=== PATIENT | female | born 1995 | race Hispanic/Latino ===

== ENCOUNTER 2018-06-20 19:42 | Emergency (ER) | payer OTHER ==
[2018-06-20] MEDS ORDERED: ONDANSETRON HCL 4 MG/2 ML VIAL ONE (20:16)
[2018-06-20] MEDS ORDERED: SODIUM CHLORIDE 0.9% 1000ML 1,000 ML IV ONE (20:17)
[2018-06-20 20:51] LABS: BASOPHILS % (AUTO) 0.2 % (0.0-5.0); EOSINOPHILS % (AUTO) 0.2 % (0.0-8.0); HEMATOCRIT 37.5 % (36-48); LYMPHOCYTES % (AUTO) 10.1 % (21.0-51.0); MEAN CORPUSCULAR HEMOGLOBIN 27.5 pg (27.0-33.0); MEAN CORPUSCULAR HGB CONC 33.1 g/dL (32.0-36.0); MEAN CORPUSCULAR VOLUME 83.1 fL (79-99); MONOCYTES % (AUTO) 4.6 % (3.0-13.0); NEUTROPHILS % (AUTO) 84.9 % (40.0-77.0); NUCLEATED RED BLOOD CELLS 0.1 % (0.0-0.19); PLATELET COUNT (AUTO) 245 K/uL (130-400); RED BLOOD CELL COUNT(AUTO) 4.51 MIL/uL (4.00-5.50); RED CELL DISTRIBUTION WIDTH 14.2 % (11.0-15.5); WHITE BLOOD COUNT (AUTO) 6.8 K/uL (4.8-10.8)
[2018-06-20 21:03] LABS: CREATININE 0.7 mg/dL (0.5-1.5); POTASSIUM 3.5 mmol/L (3.5-5.1)
[2018-06-20 21:10] LABS: BILIRUBIN,TOTAL 1.1 mg/dL (0.2-1.0); TOTAL PROTEIN, SERUM 7.3 g/dL (6.0-8.3)
[2018-06-20 21:23] LABS: BILIRUBIN,URINE Negative (NEGATIVE); COLOR,URINE Dark Yellow (YELLOW); GLUCOSE, URINE (UA) Negative (NEGATIVE); KETONES,URINE Trace mg/dL (NEGATIVE); LEUKOCYTE ESTERASE ,URINE Small (NEGATIVE); NITRATE,URINE Negative (NEGATIVE); OCCULT BLOOD,URINE Negative (NEGATIVE); PROTEIN,URINE POS 1+ (NEGATIVE)
[2018-06-20 21:26] LABS: APPEARANCE,URINE SLIGHTLY CLOUDY (CLEAR)
[2018-06-20 21:29] LABS: RBC,URINE 0-1 /HPF (0-1)
[2018-06-20 21:30] LABS: BACTERIA,URINE Few /HPF (None Seen); MUCUS,URINE Moderate LPF (None Seen); SQUAMOUS EPITHELIAL CELL,UR Moderate /HPF (0-2)
== END 2018-06-20 22:05 | disposition home or self-care (01) ==
LOC: EDH 19:42
DX: K52.9 Noninfective gastroenteritis and colitis, unspecified (principal); N30.00 Acute cystitis without hematuria
CPT/HCPCS: 36415; 80053; 81001; 81025; 83605; 83690; 85025; 87040 ×2; 96361; 96374; 99283; J2405; J7030

== ENCOUNTER 2021-02-27 15:23 | Observation (INO) | payer MEDICAID ==
[~2021-02-27] VITALS: Ht 172.7 cm; Wt 172.4 kg
[2021-02-27 15:31] VITALS: BP 155/93
== END 2021-02-27 18:30 | disposition home or self-care (01) ==
LOC: EDH 15:23 → LDH 15:24
PROVIDERS: ADMIT Internal Medicine; ATTEND Internal Medicine
DX: O26.852 Spotting complicating pregnancy, second trimester (principal); Z3A.20 20 weeks gestation of pregnancy
CPT/HCPCS: 76805; G0378 ×4

== ENCOUNTER 2021-06-19 20:20 | Inpatient (IN) | payer MEDICAID ==
[~2021-06-19] VITALS: Ht 172.7 cm; Wt 181.0 kg
[2021-06-19 21:00] VITALS: BP 109/62
[2021-06-19 21:02] LABS: APPEARANCE,URINE Cloudy (CLEAR); BILIRUBIN,URINE Small (NEGATIVE); COLOR,URINE Dark Yellow (YELLOW); GLUCOSE, URINE (UA) Negative (NEGATIVE); KETONES,URINE Trace mg/dL (NEGATIVE); LEUKOCYTE ESTERASE ,URINE Moderate (NEGATIVE); NITRATE,URINE Negative (NEGATIVE); OCCULT BLOOD,URINE Moderate (NEGATIVE); PROTEIN,URINE POS 1+ mg/dL (NEGATIVE)
[2021-06-19] MEDS: LACTATED RINGERS 1000ML 1,000 ML IV PRN (21:20)
[2021-06-19 21:27] LABS: BACTERIA,URINE Few /HPF (None Seen); MUCUS,URINE Few LPF (None Seen); RBC,URINE None Seen /HPF (0-1); WBC,URINE 26-50 /HPF (0-1)
[2021-06-19 21:28] LABS: HEMATOCRIT 31.6 % (36-48); MEAN CORPUSCULAR HEMOGLOBIN 26.5 pg (27.0-33.0); MEAN CORPUSCULAR VOLUME 82.9 fL (79-99); RED BLOOD CELL COUNT(AUTO) 3.81 MIL/uL (4.00-5.50); RED CELL DISTRIBUTION WIDTH 14.1 % (11.0-15.5); WHITE BLOOD COUNT (AUTO) 7.7 K/uL (4.8-10.8)
[2021-06-19 21:36] LABS: CREATININE 0.9 mg/dL (0.5-1.5)
[2021-06-19 21:38] LABS: INR 1.02 (0.85-1.15); PROTHROMBIN TIME 11.1 SEC (9.6-11.6)
[2021-06-19 21:39] LABS: PARTIAL THROMBOPLASTIN TIME 28.1 SEC (26.3-35.5)
[2021-06-19 21:41] LABS: ALBUMIN 2.1 g/dL (3.5-5.0); BILIRUBIN,TOTAL 0.4 mg/dL (0.2-1.0); TOTAL PROTEIN, SERUM 6.4 g/dL (6.0-8.3); URIC ACID 5.2 mg/dL (2.6-7.2)
[2021-06-20] MEDS ORDERED: OXYTOCIN-LR 20 UNITS/1000 ML 1,000 ML IV SCH ×2 (05:00→19:30)
[2021-06-20] MEDS ORDERED: LABE100T5 PO (05:31)
[2021-06-20] MEDS ORDERED: PREN1TAB80 PO (05:31)
[2021-06-20] MEDS ORDERED: AEC81 PO (05:31)
[2021-06-20] MEDS: LACTATED RINGERS 1000ML 1,000 ML IV PRN ×2 (10:40→10:52)
[2021-06-20] MEDS ORDERED: LACTATED RINGERS 500 ML 500 ML IV PRN (14:30)
[2021-06-20] MEDS ORDERED: EPHEDRINE SULFATE 50 MG/ML AMPULE IVP PRN (14:30)
[2021-06-20] MEDS ORDERED: MEPERIDINE-PF 50 MG/ML SYG IVP PRN (14:30)
[2021-06-20] MEDS ORDERED: PROMETHAZINE HCL 25 MG/ML 1ML AMPULE IM PRN (14:30)
[2021-06-20] MEDS ORDERED: NALOXONE HCL 0.4 MG/1 ML ML IV PRN (14:30)
[2021-06-20] MEDS ORDERED: MEPERIDINE-PF 50 MG/ML SYG ONE (14:32)
[2021-06-20] MEDS ORDERED: LIDOCAINE HCL 1% 20 ML VIAL ONE (19:00)
[2021-06-20] MEDS ORDERED: ACETAMINOPHEN 325 MG TAB PO PRN (19:30)
[2021-06-20] MEDS ORDERED: ACETAMINOPHEN WITH CODEINE 1 TAB TAB PO PRN (19:30)
[2021-06-20] MEDS ORDERED: IBUPROFEN 600 MG TABLET PO PRN (19:30)
[2021-06-20] MEDS ORDERED: LANOLIN 30GM OINTMENT TP PRN (19:30)
[2021-06-20] MEDS ORDERED: BENZOCAINE/LANOLIN/ALOE VERA 60 ML AEROSOL TP PRN (19:30)
[2021-06-20] MEDS ORDERED: WITCH HAZEL 1 PAD TP PRN (19:30)
[2021-06-20] MEDS: DOCUSATE SODIUM 100 MG CAP PO SCH (21:00)
[2021-06-20 23:40] VITALS: BP 108/59
[2021-06-21 02:07] VITALS: BP 109/61
[2021-06-21 05:30] VITALS: BP 105/57
[2021-06-21 07:35] VITALS: BP 97/63
[2021-06-21 07:45] VITALS: BP 125/76
[2021-06-21 07:48] LABS: HEMATOCRIT 27.1 % (36-48); MEAN CORPUSCULAR HEMOGLOBIN 26.9 pg (27.0-33.0); MEAN CORPUSCULAR HGB CONC 31.7 g/dL (32.0-36.0); MEAN CORPUSCULAR VOLUME 84.7 fL (79-99); RED BLOOD CELL COUNT(AUTO) 3.2 MIL/uL (4.00-5.50); RED CELL DISTRIBUTION WIDTH 14.3 % (11.0-15.5); WHITE BLOOD COUNT (AUTO) 9.6 K/uL (4.8-10.8)
[2021-06-21] MEDS: DOCUSATE SODIUM 100 MG CAP PO SCH (08:15)
[2021-06-21] MEDS ORDERED: DOCU-116 PO (10:30)
[2021-06-21] MEDS ORDERED: FERS325 PO (10:32)
[2021-06-21] MEDS ORDERED: IBUP-2070 PO (10:33)
[2021-06-21 11:39] VITALS: BP 94/51
[2021-06-22 01:08] LABS: HEPATITIS Bs ANTIGEN SCREEN P Negative (Negative)
== END 2021-06-21 18:55 | disposition home or self-care (01) | DRG 560 ==
LOC: LDH 20:20 → WSH 06-20 21:40
PROVIDERS: ADMIT Internal Medicine; ATTEND Internal Medicine
PROC: 10E0XZZ Delivery of Products of Conception, External Approach (ICD-10-PCS; principal; 2021-06-20)
PROC: 0UQGXZZ Repair Vagina, External Approach (ICD-10-PCS; 2021-06-20)
DX: O14.04 Mild to moderate pre-eclampsia, complicating childbirth (principal); E66.01 Morbid (severe) obesity due to excess calories; Z37.0 Single live birth; O99.214 Obesity complicating childbirth; Z3A.36 36 weeks gestation of pregnancy; O71.4 Obstetric high vaginal laceration alone
CPT/HCPCS: 36415; 80053; 81001; 84550; 85027; 85384; 85610; 85730; 86592; 86850; 86900; 86901; 87088; 87340; A4314; G0378; J2175; J2590; J7120

== ENCOUNTER 2023-01-19 12:39 | Emergency (ER) | payer MEDICAID ==
[~2023-01-19] VITALS: Ht 172.7 cm; Wt 158.8 kg
[~2023-01-19 12:39] MED LIST: AEC81 PO; DOCU-116 PO; FERS325 PO; IBUP-2070 PO; PREN1TAB80 PO
[2023-01-19 12:43] VITALS: BP 140/80; PULSE 75; RESP 16
[2023-01-19] MEDS ORDERED: IBUPROFEN 600 MG TABLET PO ONE (13:30)
[2023-01-19] MEDS ORDERED: DIAZEPAM 5 MG TABLET PO ONE (13:30)
[2023-01-19] MEDS ORDERED: ONDANSETRON ODT 4MG TAB SL ONE (13:30)
[2023-01-19] MEDS ORDERED: PREDNISONE 20 MG TABLET PO ONE (13:30)
[2023-01-19] MEDS ORDERED: HYDROCODONE/ACETAMINOPHEN 5/325 MG TAB PO ONE (13:30)
[2023-01-19] MEDS ORDERED: IBUP-2070 PO (14:39)
[2023-01-19] MEDS ORDERED: METH-811 PO (14:39)
[2023-01-19] MEDS ORDERED: PRED20TA3 PO (14:39)
== END 2023-01-19 14:50 | disposition home or self-care (01) ==
LOC: EDH 12:39
DX: M26.621 Arthralgia of right temporomandibular joint (principal); Z79.82 Long term (current) use of aspirin
CPT/HCPCS: 70110

== ENCOUNTER 2023-05-24 21:20 | Emergency (ER) | payer MEDICAID ==
[~2023-05-24] VITALS: Ht 172.7 cm; Wt 176.9 kg
[~2023-05-24 21:20] MED LIST changes: +METH-811 PO; +PRED20TA3 PO
[2023-05-25 01:07] LABS: RAPID GROUP A STREP negative (NEGATIVE)
[2023-05-25 01:15] LABS: SARS-CoV-2, RNA, NAAT NEGATIVE SARS CoV-2 (NEGATIVE)
[2023-05-25 01:18] LABS: INFLUENZA TYPE A Negative For Type A (NEGATIVE); INFLUENZA TYPE B Negative For Type B (NEGATIVE)
[2023-05-25 01:40] VITALS: BP 142/68; PULSE 82; RESP 16; O2SAT 100
== END 2023-05-25 01:36 | disposition home or self-care (01) ==
LOC: EDH 21:20
DX: B34.9 Viral infection, unspecified (principal); Z79.52 Long term (current) use of systemic steroids; Z79.82 Long term (current) use of aspirin; Z20.822 Contact with and (suspected) exposure to COVID-19
CPT/HCPCS: 99283; 87635; 87880; 87804 ×2; C9803